=== PATIENT | female | born 1965 | race African-American/Black ===

== ENCOUNTER 2020-01-25 13:31 | Emergency (ER) | payer MEDICARE, MEDICAID ==
[~2020-01-25] VITALS: Ht 172.7 cm; Wt 85.0 kg
[2020-01-25] MEDS ORDERED: ACETAMINOPHEN 325MG TABLET PO ONE (14:45)
[2020-01-25 16:19] VITALS: BP 132/72
== END 2020-01-25 16:21 | disposition home or self-care (01) ==
LOC: ER 14:06
DX: S09.90XA Unspecified injury of head, initial encounter (principal); E11.9 Type 2 diabetes mellitus without complications; I10 Essential (primary) hypertension; Z98.890 Other specified postprocedural states; Z88.2 Allergy status to sulfonamides; V49.9XXA Car occupant (driver) (passenger) injured in unspecified traffic accident, initial encounter; Y93.89 Activity, other specified; Y92.89 Other specified places as the place of occurrence of the external cause; Y99.8 Other external cause status
CPT/HCPCS: 73030; 99284